=== PATIENT | female | born 2000 | race Caucasian/White ===

== ENCOUNTER 2021-05-19 02:21 | Emergency (ER) | payer MEDICAID ==
[~2021-05-19] VITALS: Ht 157.5 cm; Wt 73.0 kg
[2021-05-19] MEDS ORDERED: HYDROCODONE/ACETAMINOPHEN 5/325MG TABLET PO ONE (02:45)
[2021-05-19] MEDS ORDERED: PROPOFOL 200MG/20ML VIAL IV ONE (04:15)
[2021-05-19] MEDS ORDERED: ONDANSETRON HCL 4MG/2ML INJ IV ONE (04:15)
[2021-05-19] MEDS ORDERED: NAPR-681 MT (05:40)
[2021-05-19 06:46] VITALS: BP 127/70
== END 2021-05-19 07:02 | disposition home or self-care (01) ==
LOC: ER 02:21
DX: S43.014A Anterior dislocation of right humerus, initial encounter (principal); Y04.0XXA Assault by unarmed brawl or fight, initial encounter; Y93.89 Activity, other specified; Y92.89 Other specified places as the place of occurrence of the external cause
CPT/HCPCS: 23650; 73030; 73060; 81025; 99152; 99285; J2704

== ENCOUNTER 2022-08-08 14:52 | Emergency (ER) | payer SELFPAY ==
[~2022-08-08] VITALS: Ht 167.6 cm; Wt 75.0 kg
[~2022-08-08 14:52] MED LIST: NAPR-681 MT
[2022-08-08] MEDS ORDERED: PROPOFOL 200MG/20ML VIAL IV ONE ×2 (18:45→22:15)
[2022-08-08] MEDS ORDERED: MORPHINE SULFATE 4 MG/ML CPJ (NOT FOR IM USE) IV ONE (20:45)
[2022-08-08] MEDS ORDERED: ONDANSETRON HCL 4MG/2ML INJ IM ONE (20:45)
[2022-08-08 22:00] VITALS: BP 137/90
== END 2022-08-09 01:05 | disposition home or self-care (01) ==
LOC: ER 14:52
DX: S43.004A Unspecified dislocation of right shoulder joint, initial encounter (principal); W18.39XA Other fall on same level, initial encounter; Y93.89 Activity, other specified; Y92.89 Other specified places as the place of occurrence of the external cause; Y99.8 Other external cause status
CPT/HCPCS: 23650; 73030; 96374; 99152; 99285; J2270; J2405; J2704; Z7610; A4565

== ENCOUNTER 2023-03-13 20:13 | Emergency (ER) | payer SELFPAY ==
[~2023-03-13] VITALS: Ht 157.5 cm; Wt 70.2 kg
[2023-03-13 20:29] VITALS: O2SAT 98
[2023-03-13] MEDS ORDERED: IBUPROFEN 600MG TABLET PO ONE (20:45)
[2023-03-13] MEDS ORDERED: IBUP-2029 MT (21:29)
[2023-03-13] MEDS ORDERED: IBUPROFEN 600MG TABLET PO NR (21:45)
[2023-03-13 21:56] VITALS: BP 126/72; PULSE 97; RESP 20; TEMP 98.1
== END 2023-03-13 21:58 | disposition home or self-care (01) ==
LOC: ER 20:13
DX: M25.511 Pain in right shoulder (principal)
CPT/HCPCS: 23650; 73030; 99284